=== PATIENT | female | born 1950 | race Two or more races ===

== ENCOUNTER 2018-04-14 10:12 | Emergency (ER) | payer OTHER ==
[2018-04-14 10:21] VITALS: TEMP 97.5
[2018-04-14] MEDS ORDERED: LIDOCAINE 5% PATCH TOPICAL STA (11:04)
--- NOTE | 2018-04-14 11:06 | ED ---
General Adult HPI - General Chief complaint: Fall Stated complaint: fall, katie, upper rt chest pain Source: patient Mode of arrival: ambulatory Limitations: no limitations - History of Present Illness Initial comments: Dictation was produced using [employer] dictation software. please excuse any grammatical, word or spelling errors. Chief Complaint: 67-year-old female presents with right-sided chest pain after fall. History of Present Illness: Patient states she was walking yesterday. She tripped over the sidewalk causing her to fall to her right side. Patient states that she contuse her right chest. When she woke with severe right-sided chest pain. She states her pain is worse with right upper extremity movement, deep inspiration. Patient is visiting from [place]. She states she only has dyslipidemia as medical problem. Patient reports severe tenderness with palpation to the right anterior chest. The ROS documented in this emergency department record has been reviewed and confirmed by me. Those systems with pertinent positive or negative responses have been documented in the HPI. All other systems are other negative and/or noncontributory. - Related Data Home Medications Medication Instructions Recorded Confirmed Cholecalciferol [Vitamin D3] 1,000 unit PO DAILY 04/14/18 04/14/18 Multivitamin,Therapeutic [Thera] 1 tab PO DAILY 04/14/18 04/14/18 Simvastatin [Zocor] 20 mg PO HS 04/14/18 04/14/18 Vitamin C/Biotin [Hair, Skin and 1 tab PO DAILY 04/14/18 04/14/18 Nails] Previous Rx's Medication Instructions Recorded Lidocaine 5% Patch [Lidoderm 5% 1 patch TOPICAL DAILY 3 Days #3 04/14/18 Patch] patch Allergies Allergy/AdvReac Type Severity Reaction Status Date / Time Penicillins Allergy Unknown Verified 04/14/18 10:50 Review of Systems ROS Statement: Those systems with pertinent positive or pertinent negative responses have been documented in the HPI. ROS Other: All systems not noted in ROS Statement are negative. Past Medical History Past Medical History: Hyperlipidemia History of Any Multi-Drug Resistant Organisms: None Reported Additional Past Surgical History / Comment(s): Abd Sleeve, Knee Past Psychological History: No Psychological Hx Reported Smoking Status: Never smoker Past Alcohol Use History: Occasional Past Drug Use History: None Reported General Exam - General Exam Comments Initial Comments: PHYSICAL EXAM: General Impression: Alert and oriented x3, not in acute distress HEENT: Normocephalic atraumatic, extra-ocular movements intact, pupils equal and reactive to light bilaterally, mucous membranes moist. Cardiovascular: Heart regular rate and rhythm, S1&S2 audible, no murmurs, rubs or gallops Chest: Lungs clear to auscultation bilaterally, no rhonchi, no wheeze, no rales , tenderness to palpation of the right anterior chest, no ecchymoses Abdomen: Bowel sounds present, abdomen soft, non-tender, non-distended, no organomegaly Musculoskeletal: Pulses present and equal in all extremities, no peripheral edema Motor: Power 5/5 bilaterally, no focal deficits noted Neurological: CN II-XII grossly intact, no focal motor or sensory deficits noted Skin: Intact with no visualized rashes Psych: Normal affect and mood Limitations: no limitations Course Vital Signs 04/14/18 10:17 Temperature 97.5 F L Pulse Rate 82 Respiratory 20 Rate Blood Pressure 130/68 O2 Sat by Pulse 99 Oximetry Medical Decision Making - Medical Decision Making ED course: 67-year-old female presents with right-sided chest pain after fall. Vital signs upon arrival are within acceptable limits. Patient's chest pain is atypical. There is strong clinical suspicion that patient suffered rib fractures. CT was obtained to evaluate for rib fractures. CT did not show an acute processes. There are incidental findings of pulmonary nodules. Patient notified of these results. Patient given lidocaine patches prescription. Take [id number] analgesics for pain control. Told to follow-up with primary care physician. EKG interpretation: Ventricular rate 58, sinus bradycardia,. Interval 184, care is 96, QTC 428. No OK prolongation, no QTC prolongation, no ST or T-wave changes noted. Overall, this EKG is unremarkable Disposition Clinical Impression: Chest wall muscle strain Disposition: HOME SELF-CARE Condition: Good Instructions: Fall Prevention for Older Adults (ED) Prescriptions: Lidocaine 5% Patch [Lidoderm 5% Patch] 1 patch TOPICAL DAILY 3 Days #3 patch Is patient prescribed a controlled substance at d/c from ED?: No Referrals: None,Stated [Primary Care Provider] - 1-2 days Time of Disposition: 12:12
--- NOTE | 2018-04-14 11:59 | CT ---
EXAMINATION TYPE: CT chest wo con DATE OF EXAM: 04/14/2018 COMPARISON: None HISTORY: Pain CT DLP: 246.3 mGycm. Automated Exposure Control for Dose Reduction was Utilized. TECHNIQUE: CT scan of the thorax is performed without IV contrast. FINDINGS: LUNGS: Groundglass changes and subsegmental findings involving the posterior lung bases are most typi [place] of atelectasis or scar. There is a pleural-based 3 mm nodule in the right middle lobe on axial im age 20. No pneumothorax. No consolidative pneumonia. 4 mm right apical pulmonary nodule noted.. MEDIASTINUM: Lack of IV contrast is noted to limit evaluation for mediastinal and especially hilar ad enopathy. There are no definitive greater than 1 cm hilar or mediastinal lymph nodes. The heart is pr ominent in size. Coronary artery calcification noted. Atherosclerotic change of the aorta. OTHER: Mul tilevel hypertrophic and degenerative disc disease. Postsurgical change involving the epigastrium. Ga llstone incidentally noted. Hepatic granuloma noted. IMPRESSION: 1. Subsegmental consolidation involving the lung bases favor atelectasis over infiltrate. 2. There are 2 pulmonary nodules in the right lung measuring 4 mm or less which are not small to krystyna acterize. Six-month follow-up CT of the chest is recommended to confirm stability.
[2018-04-14 12:37] VITALS: BP 136/85; PULSE 88; RESP 18
== END 2018-04-14 12:30 | disposition home or self-care (01) ==
LOC: EC 10:12
DX: S29.011A Strain of muscle and tendon of front wall of thorax, initial encounter (principal); E78.5 Hyperlipidemia, unspecified; Z79.899 Other long term (current) drug therapy; Z88.0 Allergy status to penicillin; W01.0XXA Fall on same level from slipping, tripping and stumbling without subsequent striking against object, initial encounter; Y93.01 Activity, walking, marching and hiking; Y92.480 Sidewalk as the place of occurrence of the external cause
CPT/HCPCS: 71250; 93005; 99284